=== PATIENT | female | born 2000 | race Two or more races ===

== ENCOUNTER → 2023-12-02 | Outpatient (CLI) | payer BC ==
[2023-12-02 10:30] LABS: Urine Bacteria None Seen /hpf (None Seen)
[2023-12-02 10:51] LABS: Urine Blood Negative /uL (Negative); Urine Clarity Clear (Clear); Urine Color Light-Yellow (Yellow); Urine Protein, UAD Negative (Negative); Urine Specific Gravity 1.018 (1.001-1.035); Urine Urobilinogen Normal (Negative); Urine WBC <1 /hpf (0 - 5); Urine pH 6.5 (5.0-9.0)
[2023-12-02 11:14] LABS: Basophils # (auto) 0.1 10 ^3/uL (0-0.2); Basophils % (auto) 1.1 % (0.0-2.0); Eosinophils # (auto) 0.2 10 ^3/uL (0-0.8); Eosinophils % (auto) 1.4 % (0.0-7.0); Hematocrit 39.2 % (36.0-46.0); Hemoglobin 13.4 g/dL (12.2-16.2); Lymphocytes # (auto) 2.4 10 ^3/uL (0.4-5.4); Lymphocytes % (auto) 22.4 % (10.0-50.0); Mean Corpuscular Hemoglobin 29.9 pg (28.0-32.0); Mean Corpuscular Hgb Conc. 34.2 g/dL (32.0-36.0); Mean Corpuscular Volume 87.6 fL (80.0-100.0); Monocytes # (auto) 0.6 10 ^3/uL (0-1.3); Monocytes % (auto) 5.6 % (0.0-12.0); Neutrophils # (auto) 7.3 10 ^3/uL (1.6-8.6); Neutrophils % (auto) 69.5 % (37.0-80.0); Platelet Count (auto) 343 10^3/uL (140-450); Red Blood Cells 4.48 10^6/uL (4.0-5.20); Red Cell Distribution Width 12.4 % (11.8-14.3); White Blood Cell 10.6 10^3/uL (4.4-10.8)
[2023-12-02 11:43] LABS: Alanine Aminotransferase 31 U/L (7-40); Albumin 4.9 g/dL (3.2-4.8); Alkaline Phosphatase 59 U/L (46-116); Anion Gap 7 (5-15); Aspartate Aminotransferase 24 U/L (13-40); Blood Urea Nitrogen 9 mg/dL (9-23); Calcium 10.1 mg/dL (8.7-10.4); Carbon Dioxide 26 mmol/L (20-30); Chloride 105 mmol/L (98-107); Cholesterol 167 mg/dL (< 200); Glucose 90 mg/dL (74-106); LDL Cholesterol 89 mg/dL (< 100); Potassium 4.6 mmol/L (3.5-5.1); Sodium 138 mmol/L (136-145); Triglycerides 109 mg/dL (< 150)
[2023-12-02 11:44] LABS: Bilirubin, Total 0.5 mg/dL (0.2-1.0); HDL Cholesterol 65 mg/dL (40-59); Total Protein 7.7 g/dL (5.7-8.2)
== END | disposition home or self-care (01) ==
LOC: LAB 10:17
PROVIDERS: ATTEND Student in an Organized Health Care Education/Training Program
DX: R73.9 Hyperglycemia, unspecified (principal); E55.9 Vitamin D deficiency, unspecified; R03.0 Elevated blood-pressure reading, without diagnosis of hypertension
CPT/HCPCS: 36415; 80053; 80061; 81001; 82306; 83036; 84443; 85025

== ENCOUNTER → 2024-04-08 | Outpatient (CLI) | payer BC ==
[2024-04-08 14:46] LABS: Basophils # (auto) 0.1 10 ^3/uL (0-0.2); Basophils % (auto) 0.7 % (0.0-2.0); Eosinophils # (auto) 0.2 10 ^3/uL (0-0.8); Eosinophils % (auto) 1.7 % (0.0-7.0); Hematocrit 40.5 % (36.0-46.0); Hemoglobin 13.4 g/dL (12.2-16.2); Lymphocytes # (auto) 2.8 10 ^3/uL (0.4-5.4); Lymphocytes % (auto) 30.3 % (10.0-50.0); Mean Corpuscular Hemoglobin 28.6 pg (28.0-32.0); Mean Corpuscular Volume 86.7 fL (80.0-100.0); Monocytes # (auto) 0.6 10 ^3/uL (0-1.3); Monocytes % (auto) 6.9 % (0.0-12.0); Neutrophils # (auto) 5.6 10 ^3/uL (1.6-8.6); Neutrophils % (auto) 60.4 % (37.0-80.0); Platelet Count (auto) 362 10^3/uL (140-450); Red Blood Cells 4.67 10^6/uL (4.0-5.20); Red Cell Distribution Width 13.4 % (11.8-14.3); White Blood Cell 9.2 10^3/uL (4.4-10.8)
[2024-04-08 15:06] LABS: Thyroid Stimulating Hormone 2.17 uIU/mL (0.55-4.78)
[2024-04-08 15:07] LABS: Follicle Stimulating Hormone 3.75 IU/L (SEE BELOW); Free T4 (Free Thyroxine) 1.18 ng/dL (0.89-1.76); Leuteinizing Hormone 6.7 IU/L; Prolactin 7.5 ng/mL (2.8-29.2)
[2024-04-08 15:18] LABS: Beta HCG, Quantitative < 0.0 mIU/mL (1.5-4.2)
== END | disposition home or self-care (01) ==
LOC: LAB 14:20
PROVIDERS: ATTEND Student in an Organized Health Care Education/Training Program
DX: N92.6 Irregular menstruation, unspecified (principal)
CPT/HCPCS: 36415; 82670; 83001; 83002; 84146; 84403; 84439; 84443; 84702; 85025

== ENCOUNTER 2024-10-05 10:00 | Observation (INO) | payer BC ==
--- NOTE | 2024-10-05 10:56 | DVH ---
BIOPHYSICAL PROFILE HISTORY: polyhydramnios TECHNIQUE: Multiple transabdominal real-time grayscale sonographic images through the gravid uterus of the fetus with duplex Doppler color flow and M-mode spectral analysis FINDINGS: BIOPHYSICAL PROFILE: breathing score: 2 movement score: 2 tone score: 2 Quantitative MOLLY score: 2 (MOLLY: 19 Cm.) Total score: 8 The cervix 3.37 heart rate 169.69 beats per minute. Grade II fundal placenta without previa or abruption IMPRESSION: Biophysical profile score: 8/8
--- NOTE | 2024-10-05 14:04 | DVHDS2 ---
Physician Discharge Progress N Final Diagnosis: polyhydramnai 28wks Operations or Procedures: Operations or Procedures nst reactive reviwed,sono Condition on Discharge: Good Disposition: Home Discharge Instructions: Diet: Regular, Consistent carbohydrate Activity: No Restrictions, As Tolerated Medications: na Follow Up Care: Specialist: 1w Discharge Statement: "Patient was advised to return to the ER or call 911 if any headaches, dizziness, shortness of breath, chest pain, abdominal pain, bleeding, fevers, or worsening of medical condition. Patient was counseled about treatment plan, medications, possible side effects, patientverbalized understanding. All questions were answered to the best of my ability. This discharge took greater then 30 minutes in planning, reviewing documentation, counseling the patient, and discussing with other team members." Visit Coding OBGYN Date of Service: Oct 05, 2024 Billing Provider: AGUSTÍN ARIZA DO HIGH SCHOOL PHYSICAL EDUCATION TEACHER Common Visit Codes: [id number] OBS CARE (HIGH) HIGH SCHOOL PHYSICAL EDUCATION TEACHER Procedure Codes: 97087-56- NON-STRESS TEST AGUSTÍN ARIZA DO Oct 05, 2024 14:04
== END 2024-10-05 11:23 | disposition home or self-care (01) ==
LOC: LDRP 10:00
PROVIDERS: ADMIT Obstetrics & Gynecology; ATTEND Obstetrics & Gynecology
DX: O40.3XX0 Polyhydramnios, third trimester, not applicable or unspecified (principal); O24.419 Gestational diabetes mellitus in pregnancy, unspecified control; Z3A.28 28 weeks gestation of pregnancy; Z79.899 Other long term (current) drug therapy
CPT/HCPCS: 76818; 81002; 94760; G0378; 59025; 76819

== ENCOUNTER 2024-10-12 10:00 | Observation (INO) | payer BC, OTHER ==
--- NOTE | 2024-10-12 11:03 | DVH ---
BIOPHYSICAL PROFILE HISTORY: Polyhydramnios Comparison Study: US BIOPHYSICAL PROFILE on DOS: 10/05/24 TECHNIQUE: Multiple real-time grayscale sonographic images through the gravid uterus of the fetus wi th duplex Doppler color flow and M-mode spectral analysis FINDINGS: BIOPHYSICAL PROFILE: breathing score: 2 movement score: 2 tone score: 2 Quantitative MOLLY score: 2 (MOLLY: 15.41 Cm.) Total score: 8 The cervix is not visualized Single live fetus in cephalic presentation. heart rate 149.19 beats per minute. Posterior placenta without previa or abruption IMPRESSION: Biophysical profile score: 8
[2024-10-12] MEDS ORDERED: PREN-96 PO (11:14)
== END 2024-10-12 11:51 | disposition home or self-care (01) ==
LOC: UNDOADMOB 10:00 → LDRP 10:00
PROVIDERS: ADMIT Obstetrics & Gynecology; ATTEND Obstetrics & Gynecology
DX: O40.3XX0 Polyhydramnios, third trimester, not applicable or unspecified (principal); Z3A.29 29 weeks gestation of pregnancy; Z79.899 Other long term (current) drug therapy
CPT/HCPCS: 76818; 81002; 94760; G0378; 59025; 76819

== ENCOUNTER 2024-11-06 00:54 | Observation (INO) | payer OTHER ==
[~2024-11-06 00:54] MED LIST: PREN-96 PO
[2024-11-06] MEDS ORDERED: ASPI-543 PO (02:03)
[2024-11-06 02:24] LABS: Urine Protein, UAD Negative (Negative)
--- NOTE | 2024-11-06 03:31 | DVH ---
INDICATION: R/SIDE BACK PAIN TECHNIQUE: Multiple real-time sonographic images of the kidneys and bladder were obtained. COMPARISON: None FINDINGS: RIGHT kidney measures 9.6 cm in length. Mild hydronephrosis. LEFT kidney measures 9.9 cm in length. No hydronephrosis. The bladder is moderately distended. Wall thickness measures 2 mm. No evidence of intraluminal fillin g defect. Postvoid imaging was not performed. IMPRESSION: 1. Mild right hydronephrosis, probably physiologic in the setting of 3rd term gestation.
--- NOTE | 2024-11-06 03:35 | DVHDS2 ---
Physician Discharge Progress N Final Diagnosis: Hydronephrosis affecting right kidney Problems List: (1) Nulligravida (2) Hydronephrosis (3) Flank pain in patient Commentary: Commentary Diagnosis- Right Flank pain/ Hydronephrosis SUBJECTIVE Patient is 24 y/o 33w1d SNLMP Triage for right flank pain/ Costal Vertebral Tenderness in the right side Renal ultrasound reported of hydronephrosis in the right kidney PNC: LMP: Patient receives care with Dr Escalona, History of polyhydramnios in that has since resolved. Next appointment with Dr Escalona 11/15 Review of Systems: Neuro: No complaints Heart: No complaints Lungs: No complaints GI: No complaints : Denies dysuria, abnormal vaginal discharge, itching, pain, or change in odor. States she had episodes of spotting as described above Skin: No complaints Extremities: No complaints OBJECTIVE VSS Laboratory Tests Test 11/06/24 01:29 Range/Units Urine Color Colorless Yellow Urine Clarity Clear Clear Urine pH 6.5 5.0-9.0 Urine Specific [place] 1.001 1.001-1.035 Urine Protein Negative Negative Urine Ketones Negative Negative Urine Blood Negative Negative /uL Urine Nitrite Negative Negative Urine Bilirubin Negative Negative Urine Urobilinogen Normal Negative mg/dL Urine Leukocyte Esterase Negative Negative /uL Urine RBC <1 0 - 4 /hpf Urine Microscopic WBC < 1 0-5 /HPF Urine Squamous Epithelial Cells Few <5 /hpf Urine Bacteria None seen None Seen /hpf Urine Glucose Normal Normal mg/dL FHR: Baseline: 130 Variability: Moderate Accelerations: Present Decelerations: Absent Uterine Contractions : Mild irritability and not felt by patient Uterine : Soft and non tender to palpation Category: 1 Neuro: A&O x4. No apparent distress. Affect appropriate Heart: Regular rate and rhythm Lungs: Clear bilaterally GI: Gravid. No tenderness : SSE discussed and performed with consent. Cervix closed. No bleeding noted in vagina or at os. Copious amounts of white, frothy discharge noted. Skin: Dry and intact. No rashes or lesions Extremities: Cap refill WNL. Mild edema bilat ankles. ASSESSMENT 24 yo with IUP 33w1d C/O R Flank pain Category 1 Tracing Dx Hydronephrosis Urine Negative for Bacteria PLAN -Provide regular diet and hydration -Rx Macrobid 100 mg BID X7 days , treat Empirically -Continue with appointments as scheduled with Dr Escalona Condition on Discharge: Stable Disposition: Home Discharge Instructions: Diet: Regular Activity: No Restrictions, As Tolerated Follow Up/Referral: Keep Scheduled appointment 11/15/2024 Medications: Macrobid 100 mg BID P.P X 7 days Follow Up Care: Specialist: Dr Escalona Visit Coding OBGYN Date of Service: Nov 06, 2024 Billing Provider: BEVERLEY JHA CNM FIREWORKS ASSEMBLY SUPERVISOR Common Visit Codes: [id number] OBS CARE (MOD) [facility] [place]
== END 2024-11-06 04:30 | disposition home or self-care (01) ==
LOC: LDRP 00:54
PROVIDERS: ADMIT Obstetrics & Gynecology; ATTEND Obstetrics & Gynecology
DX: O99.891 Other specified diseases and conditions complicating pregnancy (principal); N13.30 Unspecified hydronephrosis; Z3A.33 33 weeks gestation of pregnancy; Z98.890 Other specified postprocedural states; Z79.899 Other long term (current) drug therapy
CPT/HCPCS: 59025; 76775; 81001; 81002; 94760; G0378

== ENCOUNTER 2024-11-22 08:16 | Outpatient (CLI) | payer OTHER ==
[~2024-11-22 08:16] MED LIST changes: +ASPI-543 PO
[2024-11-22 08:56] LABS: Mean Corpuscular Volume 80.6 fL (80.0-100.0); Nucleated Red Blood Cells % 0.0 %
[2024-11-22 08:59] LABS: Hematocrit 34.3 % (36.0-46.0); Hemoglobin 11.4 g/dL (12.2-16.2); Mean Corpuscular Hemoglobin 26.8 pg (28.0-32.0)
[2024-11-24 02:07] LABS: Chlamydia Trachomatis, NAA Negative (Negative); Neisseria gonorrhoeae, NAA Negative (Negative)
== END 2024-11-22 17:00 | disposition home or self-care (01) ==
LOC: LAB 08:16
PROVIDERS: ATTEND Obstetrics & Gynecology
DX: Z34.80 Encounter for supervision of other normal pregnancy, unspecified trimester (principal); Z3A.00 Weeks of gestation of pregnancy not specified
CPT/HCPCS: 36415; 85025; 86780

== ENCOUNTER 2024-12-24 06:19 | Observation (INO) | payer OTHER ==
--- NOTE | 2024-12-24 15:13 | DVH ---
OB ULTRASOUND, LIMITED CLINICAL INDICATION: term TECHNIQUE: Multiple grayscale ultrasound and M-mode images were obtained of the pelvis for evaluation of intrauterine . COMPARISON: US BIOPHYSICAL PROFILE on DOS: 10/12/24, US BIOPHYSICAL PROFILE on DOS: 10/05/24 FINDINGS: A single living fetus is seen in cephalic presentation. Biophysical: 10/21 breathin movements: 2 tone: 2 Amniotic fluid volume: 2 Placenta: Fundal/posterior. Amniotic fluid: Visibly normal. MOLLY 7.7 cm heart rate: 144 beats/min. A complete anatomic survey was not performed on this exam. Possible nuchal cord IMPRESSION: 1. Biophysical profile: 10/21 2. Possible nuchal cord
--- NOTE | 2024-12-24 15:58 | DVHDS2 ---
Physician Discharge Progress N Final Diagnosis: Term IUP 40+ wk Secondary Diagnosis: Encounter for surveillance Operations or Procedures: Operations or Procedures NST/BPP/ MOLLY reviewed, WNL PATIENT: HUNTER MEJIACT: [id number] UNIT: [id number] : 2000 [facility] BED: TRIAGE3 / A AGE / SEX: 24 / F ADM STATUS: ADM IN SERVICE 1405 ORDERING PHYSICIAN: JAYLON COBB DO PROCEDURE(s): BPP - BIOPHYSICAL PROFILE REASON: term ORDER NUMBER(s): [id number], ACCESSION NUMBER(s): [id number] OB ULTRASOUND, LIMITED CLINICAL INDICATION: term TECHNIQUE: Multiple grayscale ultrasound and M-mode images were obtained of the pelvis for evaluation of intrauterine . COMPARISON: US BIOPHYSICAL PROFILE on DOS: 10/12/24, US BIOPHYSICAL PROFILE on DOS: 10/05/24 FINDINGS: A single living fetus is seen in cephalic presentation. Biophysical: 10/21 breathin movements: 2 tone: 2 Amniotic fluid volume: 2 Placenta: Fundal/posterior. Amniotic fluid: Visibly normal. MOLLY 7.7 cm heart rate: 144 beats/min. A complete anatomic survey was not performed on this exam. Possible nuchal cord IMPRESSION: 1. Biophysical profile: 88 Condition on Discharge: Stable Disposition: Home Discharge Instructions: Diet: Regular Activity: No Restrictions, As Tolerated Follow Up/Referral: As sched Medications: NA Follow Up Care: Discharge Statement: "Patient was advised to return to the ER or call 911 if any headaches, dizziness, shortness of breath, chest pain, abdominal pain, bleeding, fevers, or worsening of medical condition. Patient was counseled about treatment plan, medications, possible side effects, patientverbalized understanding. All questions were answered to the best of my ability. This discharge took greater then 30 minutes in planning, reviewing documentation, counseling the patient, and discussing with other team members." Visit Coding OBGYN Date of Service: Dec 24, 2024 Billing Provider: JAYLON COBB DO GRAPHIC ARTS TECHNICIAN Common Visit Codes: [id number]-ZKZ/OBS SAME DATE (HIGH) GRAPHIC ARTS TECHNICIAN Procedure Codes: 65232-30- NON-STRESS TEST JAYLON COBB DO Dec 24, 2024 15:58
== END 2024-12-24 15:40 | disposition home or self-care (01) ==
LOC: LDRP 13:56
PROVIDERS: ADMIT Obstetrics & Gynecology; ATTEND Obstetrics & Gynecology
DX: O48.0 Post-term pregnancy (principal); Z3A.40 40 weeks gestation of pregnancy; Z98.890 Other specified postprocedural states
CPT/HCPCS: 76818; 81002; 94760; G0378; 59025; 76819

== ENCOUNTER 2024-12-26 08:16 | Observation (INO) | payer OTHER ==
--- NOTE | 2024-12-26 10:09 | DVH ---
BIOPHYSICAL PROFILE HISTORY: term TECHNIQUE: Multiple transabdominal real-time grayscale sonographic images through the gravid uterus o f the fetus with duplex doppler color flow and M-mode spectral analysis FINDINGS: BIOPHYSICAL PROFILE: breathing score: 2 movement score: 2 tone score: 2 Quantitative MOLLY score: 2 (MOLLY: 139 cm.) Total score: 8/8 Single live fetus in cephalic presentation. heart rate 139 beats per minute. Fundal placenta without previa or abruption Biophysical profile score 8/8 corresponding to an COLETTE of 12/24/24 IMPRESSION: Biophysical profile score: 8/8
--- NOTE | 2024-12-26 14:28 | DVHDS2 ---
Physician Discharge Progress N Final Diagnosis: term preg 40 wks Operations or Procedures: Operations or Procedures nst reactive reviwed,sono Condition on Discharge: Good Disposition: Home Discharge Instructions: Diet: Regular Activity: No Restrictions, As Tolerated Medications: na Follow Up Care: Specialist: 1d for induction Discharge Statement: "Patient was advised to return to the ER or call 911 if any headaches, dizziness, shortness of breath, chest pain, abdominal pain, bleeding, fevers, or worsening of medical condition. Patient was counseled about treatment plan, medications, possible side effects, patientverbalized understanding. All questions were answered to the best of my ability. This discharge took greater then 30 minutes in planning, reviewing documentation, counseling the patient, and discussing with other team members." Visit Coding OBGYN Date of Service: Dec 26, 2024 Billing Provider: AGUSTÍN ARIZA DO DIE CLEANER Common Visit Codes: [id number] OBS CARE (HIGH) DIE CLEANER Procedure Codes: 58691-74- NON-STRESS TEST AGUSTÍN ARIZA DO Dec 26, 2024 14:28
== END 2024-12-26 11:09 | disposition home or self-care (01) ==
LOC: LDRP 08:16 → UNDOADMOB 08:16 → LDRP 09:18
PROVIDERS: ADMIT Obstetrics & Gynecology; ATTEND Obstetrics & Gynecology
DX: O48.0 Post-term pregnancy (principal); Z3A.40 40 weeks gestation of pregnancy; Z98.890 Other specified postprocedural states
CPT/HCPCS: 59025; 76819; 81002; 94760; G0378; 76818

== ENCOUNTER 2024-12-27 10:00 | Inpatient (IN) | payer OTHER ==
[~2024-12-27] VITALS: Ht 160 cm; Wt 78.0 kg
[~2024-12-27 10:00] MED LIST changes: -ASPI-543 PO
[2024-12-27] MEDS ORDERED: LIDOCAINE 2%HCL (LOCAL ANESTH.) INJ 20ML MDV IJ PRN (10:45)
[2024-12-27] MEDS ORDERED: BUTORPHANOL TARTRATE 2 MG/1 ML VIAL IV PRN ×2 (10:45)
[2024-12-27 11:37] LABS: Hematocrit 36.3 % (36.0-46.0); Hemoglobin 11.6 g/dL (12.2-16.2); Mean Corpuscular Hemoglobin 25.3 pg (28.0-32.0); Mean Corpuscular Volume 79.4 fL (80.0-100.0); Nucleated Red Blood Cells % 0.1 %
[2024-12-27 11:49] LABS: INR 0.91 (0.9-1.15); Partial Thromboplastin Time 27.0 SEC (24.5-34.5); Prothrombin Time 9.7 sec (9.3-11.8)
[2024-12-27 11:57] LABS: Alanine Aminotransferase 10 U/L (7-40); Albumin 3.8 g/dL (3.2-4.8); Anion Gap 11 (5-15); BUN/Creatinine Ratio 9.4 (10.0-20.0); Bilirubin, Total 0.4 mg/dL (0.2-1.0); Calcium 8.8 mg/dL (8.7-10.4); Carbon Dioxide 23 mmol/L (20-31); Chloride 106 mmol/L (98-107); Glucose 91 mg/dL (74-106); Potassium 3.9 mmol/L (3.5-5.1); Sodium 140 mmol/L (136-145); Total Protein 6.4 g/dL (5.7-8.2)
[2024-12-27 11:59] LABS: Alkaline Phosphatase 202 U/L (46-116); Blood Urea Nitrogen 6 mg/dL (9-23)
[2024-12-27] MEDS: DERMOPLAST 60ML BOTTLE TOP PRN (12:10)
[2024-12-27] MEDS: PHISODERM TOP SOLN 240ML BTL TOP PRN (12:10)
[2024-12-27] MEDS: WITCH HAZEL-GLYCERIN PAD TOP PRN (12:10)
[2024-12-27 12:14] LABS: Urine Protein, UAD Negative (Negative)
[2024-12-27 12:37] LABS: Amphetamine Screen, Urine Neg (NEGATIVE); Barbiturate Scree,Urine Neg (NEGATIVE); Benzodiazephine Screen, Urine Neg (NEGATIVE); Cannabinoid Screen, Urine Neg (NEGATIVE); Cocaine Screen, Urine Neg (NEGATIVE); Opiate Scree,Urine Neg (NEGATIVE); Phencyclidine Screen, Urine Neg (NEGATIVE)
--- NOTE | 2024-12-27 13:07 | DVHHP2 ---
OB CC & HPI Date Date of Admission: Dec 27, 2024 Patient Identification: : 1 Para: 0 EDC: Dec 24, 2024 EGA: 40.3 Chief Complaints: Reason for admission: induction of labor Indication for induction: post dates History of Present Complaints HPI: 24yo IUP@40.3wks presents for IOL for post dates Denies LOF/VB/ROSE/vision changes/RUQ pain/UCs. Endorses +FM. PNC: Routine PNC at [facility] OB, adequate visits, PNC, uncomplicated GTT wnl, dating based on 10 w sono, GBS negative. OB hx: +Chlamydia in , patient and partner treated. ANDREW negative Past Medical History Cardiac: No pertinent Hx Pulmonary: No pertinent Hx Central Nervous System: No pertinent Hx GI: No pertinent Hx Hemotology/Oncology: No pertinent Hx Hepatobiliary: No pertinent Hx Psychiatric: No pertinent Hx Musculoskeletal: No pertinent Hx Rheumotologic: No pertinent Hx Infectious Disease: No peritnent Hx ENT: No pertinent Hx Renal/: No pertinent Hx Endocrine: No pertinent Hx Dermatology: No pertinent Hx Past Surgical History: Other (Reports eye surgery 2018) OB History OB History Care: Good Care Ultrasounds: Normal mid trimester US Obstetrical Complications: None Medical Complications: None Allergies: Coded Allergies: NO KNOWN ALLERGIES (Unverified , 11/06/24) Home Meds Reported Medications Vit W/ Ferrous Fumara ( One Daily) Daily Tab, 1 TAB PO DAILY, #90 TAB 3 Refills 10/12/24 Discontinued Reported Medications Aspirin (Aspir-Low) 81 Mg Tab, 81 MG PO DAILY for 30 Days, MG 11/06/24 Current Medications Current Medications Medications (Trade) Dose Ordered Sig/Marley Route PRN Reason Start Time Stop Time Status Last Admin Lactated Ringer's 1,000 ml @ 125 mls/hr Q8H IV 12/27/24 10:45 Witch Kalina (Tucks) 1 pad PRN PRN TOP PERINEAL AREA DISCOMFORT 12/27/24 10:45 12/27/24 12:10 Sodium Lauryl Sulfate (Phisoderm) 240 ml PRN PRN TOP PERINEAL AREA DISCOMFORT 12/27/24 10:45 12/27/24 12:10 Benzocaine (Dermoplast) 1 applic PRN PRN TOP PERINEAL AREA DISCOMFORT 12/27/24 10:45 12/27/24 12:10 Butorphanol Tartrate (Stadol Injection) 1 mg Q4HPRN PRN IV MODERATE PAIN (4-6 PAIN SCALE) 12/27/24 10:45 Butorphanol Tartrate (Stadol Injection) 2 mg Q4HPRN PRN IV SEVERE PAIN (7-10 PAIN SCALE) 12/27/24 10:45 Misoprostol (Cytotec) 50 mcg Q4HPRN PRN PO CERVICAL RIPENING 12/27/24 10:45 12/27/24 12:10 Lidocaine HCl (Xylocaine) 20 ml ONCE PRN IJ PERINEAL AREA DISCOMFORT 12/27/24 10:45 Family & Social History Family/Social History Past Family/Social History: Denies Blood Type: AB+ Rubella: immune RPR/VDRL: Negative GBS Status: Negative HBsAG: Negative Review of Systems Constitutional: No symptom reported Ears, Nose, & Throat: No symptom reported Eyes: No symptom reported Pulmonary/Respiratory: No symptom reported Cardiovascular: No symptom reported Gastrointestinal: No symptom reported Genitourinary: No symptom reported Musculoskeletal: No symptom reported Skin: No symptom reported Psychiatric: No symptom reported Endocrine: No symptom reported Hemotologic/Lymphatic: No symptom reported OB Admission Exam Physical Exam Vitals: O: VSS EFW - 7lbs 4oz one week ago in clinic SVE - , vtx Cytotec x1 given After discussion, patient desires corona cervical ripening balloon. HEENT: TMs Normal, Fontanelles Normal, Nasal Mucosa Normal, Eyes non-injected, Oropharynx Normal, PERRLA, Moist Membranes, EOMI Heart: Rhythm Normal Lungs: Clear Abdomen: Gravid Extremities: Normal Reflexes: Normal Pelvic Exam: - Corona cervical ripening balloon placed, 60cc sterile water Membranes: Intact Heart Rate: 150's Accelerations: Accelerations Present Decelerations: No Decelerations Detention Variability: Average (6-25) Contractions on Admission: None OB Plan Plan Admitting Diagnosis: induction of labor for post term Plan: Induction Induction Methd: Misoprostol protocol Other Plan: A: 24yo IUP@40.3wks Induction of Labor for Post Dates History +Chlamydia, treated Category I EFM Intact Membranes GBS negative P: Admit to L&D Informed consent obtained Discussed risks, benefits, alternatives of IOL for postdates with pt. Pt consents to IOL with cytotec and corona CRB. Discussed potential of starting pitocin later with pt. Pt agrees with POC. monitoring per order Routine labs ordered Pain mgmt PRN Frequent position changes in and out of bed encouraged Limit SVE unless necessary Intrauterine resuscitation PRN Anticipate CNM will consult with Dr. Escalona PRN Visit Coding OBGYN Date of Service: Dec 27, 2024 Billing Provider: ALYSIA ADAMS CNM BILINGUAL SALES REPRESENTATIVE Common Visit Codes: [id number] INP/OBS CARE (MOD) BILINGUAL SALES REPRESENTATIVE Procedure Codes: 28475-42- NON-STRESS TEST RADHA WEST STUDENTMDW Dec 27, 2024 13:07
--- NOTE | 2024-12-27 16:12 | DVHPN2 ---
CNM Labor Progress Note Date and Time Seen Date Seen: Dec 27, 2024 Time Seen: 16:00 Subjective Patient reports: No new complaints Objective Vital Signs VSS- See CPN Monitoring Method Monitoring Method: External Heart Rate Heart Rate Baseline: 140 Heart Rate Variability: Moderate Presence of FHR Accelerations: Yes Presence of FHR Decelerations: No Changes in Trends of Patterns: No Are all 5 Components of the FH: Yes Contractions Contractions Frequency: Other (Q2-4min) Duration of Contraction: 60 Contractions Intensity: Moderate Contractions Resting Tone: Relaxed Membranes Membranes: Intact Vaginal Exam Vag Exam Deferred: No (/-2, Balloon fell out at 1435) Vaginal Exam Presentation: VTX Vaginal Exam Show: Small Medications Medications - Pitocin: No Medications - Pain Medications: PRN Medication - Epidural: No Medication - Other S/P cytotec x1 Lab Results Lab Results Current Medications Medications (Trade) Dose Ordered Sig/Marley Start Time Stop Time Status Last Admin Dose Admin Lactated Ringer's 1,000 ml @ 125 mls/hr Q8H 12/27/24 10:45 [place] Kalina (Tucks) 1 pad PRN PRN 12/27/24 10:45 12/27/24 12:10 1 PAD Sodium Lauryl Sulfate (Phisoderm) 240 ml PRN PRN 12/27/24 10:45 12/27/24 12:10 240 ML Benzocaine (Dermoplast) 1 applic PRN PRN 12/27/24 10:45 12/27/24 12:10 1 APPLIC Butorphanol Tartrate (Stadol Injection) 1 mg Q4HPRN PRN 12/27/24 10:45 Butorphanol Tartrate (Stadol Injection) 2 mg Q4HPRN PRN 12/27/24 10:45 Misoprostol (Cytotec) 50 mcg Q4HPRN PRN 12/27/24 10:45 12/27/24 12:10 50 MCG Lidocaine HCl (Xylocaine) 20 ml ONCE PRN 12/27/24 10:45 Oxytocin 500 ml @ 999 mls/hr Q31M ONCE 12/27/24 19:15 12/27/24 19:45 Oxytocin 500 ml @ 125 mls/hr Q4H ONCE 12/27/24 19:45 12/27/24 23:44 Laboratory Tests Test 12/27/24 10:50 12/27/24 10:00 Range/Units White Blood Count 12.2 H 4.4-10.8 10^3/uL Red Blood Count 4.57 4.0-5.20 10^6/uL Hemoglobin 11.6 L 12.2-16.2 g/dL Hematocrit 36.3 36.0-46.0 % Mean Corpuscular Volume 79.4 L 80.0-100.0 fL Mean Corpuscular Hemoglobin 25.3 L 28.0-32.0 pg Mean Corpuscular Hemoglobin Concent 31.9 L 32.0-36.0 g/dL Red Cell Distribution Width 14.8 H 11.8-14.3 % Platelet Count 272 140-450 10^3/uL Mean Platelet Volume 10.2 6.9-10.8 fL Neutrophils (%) (Auto) 77.4 37.0-80.0 % Lymphocytes (%) (Auto) 17.3 10.0-50.0 % Monocytes (%) (Auto) 4.4 0.0-12.0 % Eosinophils (%) (Auto) 0.4 0.0-7.0 % Basophils (%) (Auto) 0.5 0.0-2.0 % Neutrophils # (Auto) 9.5 H 1.6-8.6 10 ^3/uL Lymphocytes # (Auto) 2.1 0.4-5.4 10 ^3/uL Monocytes # (Auto) 0.5 0-1.3 10 ^3/uL Eosinophils # (Auto) 0 0-0.8 10 ^3/uL Basophils # (Auto) 0.1 0-0.2 10 ^3/uL Nucleated Red Blood Cells 0.1 % Prothrombin Time 9.7 9.3-11.8 sec Prothrombin Time INR 0.91 0.9-1.15 Activated Partial Thromboplast Time 27.0 24.5-34.5 SEC Sodium Level 140 136-145 mmol/L Potassium Level 3.9 3.5-5.1 mmol/L Chloride Level 106 98-107 mmol/L Carbon Dioxide Level 23 20-31 mmol/L Anion Gap 11 5-15 Blood Urea Nitrogen 6 L 9-23 mg/dL Creatinine 0.64 0.550-1.02 mg/dL Glomerular Filtration Rate Calc 126 >90 mL/min BUN/Creatinine Ratio 9.4 L 10.0-20.0 Serum Glucose 91 74-106 mg/dL Calcium Level 8.8 8.7-10.4 mg/dL Total Bilirubin 0.4 0.2-1.0 mg/dL Aspartate Amino Transferase (AST) 20 13-40 U/L Alanine Aminotransferase (ALT) 10 7-40 U/L Alkaline Phosphatase 202 H 46-116 U/L Total Protein 6.4 5.7-8.2 g/dL Albumin 3.8 3.2-4.8 g/dL Treponema pallidum Antibody Non-reactive Negative Hepatitis B Surface Antigen Negative Negative Hepatitis C Antibody Negative Negative Rubella Antibody Positive Urine Color Light-yellow Yellow Urine Clarity Turbid H Clear Urine pH 6.5 5.0-9.0 Urine Specific [place] 1.019 1.001-1.035 Urine Protein Negative Negative Urine Ketones Negative Negative Urine Blood 3+ H Negative /uL Urine Nitrite Negative Negative Urine Bilirubin Negative Negative Urine Urobilinogen Normal Negative mg/dL Urine Leukocyte Esterase 2+ Negative /uL Urine RBC 1 0 - 4 /hpf Urine Microscopic WBC 14 H 0-5 /HPF Urine Squamous Epithelial Cells Mod <5 /hpf Urine Bacteria None seen None Seen /hpf Urine Glucose Normal Normal mg/dL Urine Opiates Screen Neg NEGATIVE Urine Fentanyl Screen Neg NEGATIVE Urine Barbiturates Screen Neg NEGATIVE Urine Phencyclidine Screen Neg NEGATIVE Urine Amphetamines Screen Neg NEGATIVE Urine Benzodiazepines Screen Neg NEGATIVE Urine Cocaine Screen Neg NEGATIVE Urine Cannabinoids Screen Neg NEGATIVE Assessment Assessment A: 24yo IUP@40.3wks Induction of labor for Post Dates Category I EFM Intact Membranes GBS negative Plan Plan P: Start pitocin if UCs space out Pain mgmt PRN monitoring per order Frequent position changes in and out of bed encouraged Limit SVE unless necessary Intrauterine resuscitation PRN Anticipate CNM will consult with Dr. Escalona PRN Plan discussed with: Patient Visit Coding OBGYN Date of Service: Dec 27, 2024 Billing Provider: ALYSIA ADAMS CNM COPYING MACHINE MECHANIC Common Visit Codes: [id number] INP/OBS CARE(MOD) RADHA WESTMDW Dec 27, 2024 16:12
[2024-12-27] MEDS: LACTATED RINGER'S 1,000 ML IV SCH (18:45)
[2024-12-27] MEDS ORDERED: TERBUTALINE SULFATE 1 MG/ML 1ML VIAL SC PRN (20:15)
--- NOTE | 2024-12-27 20:19 | DVHPN2 ---
CNM Labor Progress Note Date and Time Seen Date Seen: Dec 27, 2024 Time Seen: 20:05 Subjective Subjective Comment Patient reports UCs increasing in intensity, declines pain medication. Objective Vital Signs VSS- See CPN Monitoring Method Monitoring Method: External Heart Rate Heart Rate Baseline: 135 Heart Rate Variability: Moderate Presence of FHR Accelerations: Yes Presence of FHR Decelerations: No Are all 5 Components of the FH: Yes Contractions Contractions Frequency: Other (Q2-4min) Duration of Contraction: 60 Contractions Intensity: Moderate Contractions Resting Tone: Relaxed Membranes Membranes: Intact Vaginal Exam Vag Exam Deferred: No (5.5/80/-2) Vaginal Exam Presentation: VTX Vaginal Exam Show: Small Medications Medications - Pitocin: No Medications - Pain Medications: PRN Medication - Epidural: No Lab Results Lab Results Current Medications Medications (Trade) Dose Ordered Sig/Marley Start Time Stop Time Status Last Admin Dose Admin Lactated Ringer's 1,000 ml @ 125 mls/hr Q8H 12/27/24 10:45 Witch Kalina (Tucks) 1 pad PRN PRN 12/27/24 10:45 12/27/24 12:10 1 PAD Sodium Lauryl Sulfate (Phisoderm) 240 ml PRN PRN 12/27/24 10:45 12/27/24 12:10 240 ML Benzocaine (Dermoplast) 1 applic PRN PRN 12/27/24 10:45 12/27/24 12:10 1 APPLIC Butorphanol Tartrate (Stadol Injection) 1 mg Q4HPRN PRN 12/27/24 10:45 Butorphanol Tartrate (Stadol Injection) 2 mg Q4HPRN PRN 12/27/24 10:45 Misoprostol (Cytotec) 50 mcg Q4HPRN PRN 12/27/24 10:45 12/27/24 12:10 50 MCG Lidocaine HCl (Xylocaine) 20 ml ONCE PRN 12/27/24 10:45 Oxytocin 500 ml @ 999 mls/hr Q31M ONCE 12/27/24 19:15 12/27/24 19:45 DC Oxytocin 500 ml @ 125 mls/hr Q4H ONCE 12/27/24 19:45 12/27/24 23:44 Oxytocin 1,000 ml @ 6 ml/hr Q24H 12/27/24 20:15 UNV Terbutaline Sulfate (Brethine Inj) 0.25 mg ONCE PRN 12/27/24 20:15 UNV Ondansetron HCl (Zofran) 4 mg Q4HPRN PRN 12/27/24 20:15 UNV Laboratory Tests Test 12/27/24 10:50 12/27/24 10:00 Range/Units White Blood Count 12.2 H 4.4-10.8 10^3/uL Red Blood Count 4.57 4.0-5.20 10^6/uL Hemoglobin 11.6 L 12.2-16.2 g/dL Hematocrit 36.3 36.0-46.0 % Mean Corpuscular Volume 79.4 L 80.0-100.0 fL Mean Corpuscular Hemoglobin 25.3 L 28.0-32.0 pg Mean Corpuscular Hemoglobin Concent 31.9 L 32.0-36.0 g/dL Red Cell Distribution Width 14.8 H 11.8-14.3 % Platelet Count 272 140-450 10^3/uL Mean Platelet Volume 10.2 6.9-10.8 fL Neutrophils (%) (Auto) 77.4 37.0-80.0 % Lymphocytes (%) (Auto) 17.3 10.0-50.0 % Monocytes (%) (Auto) 4.4 0.0-12.0 % Eosinophils (%) (Auto) 0.4 0.0-7.0 % Basophils (%) (Auto) 0.5 0.0-2.0 % Neutrophils # (Auto) 9.5 H 1.6-8.6 10 ^3/uL Lymphocytes # (Auto) 2.1 0.4-5.4 10 ^3/uL Monocytes # (Auto) 0.5 0-1.3 10 ^3/uL Eosinophils # (Auto) 0 0-0.8 10 ^3/uL Basophils # (Auto) 0.1 0-0.2 10 ^3/uL Nucleated Red Blood Cells 0.1 % Prothrombin Time 9.7 9.3-11.8 sec Prothrombin Time INR 0.91 0.9-1.15 Activated Partial Thromboplast Time 27.0 24.5-34.5 SEC Sodium Level 140 136-145 mmol/L Potassium Level 3.9 3.5-5.1 mmol/L Chloride Level 106 98-107 mmol/L Carbon Dioxide Level 23 20-31 mmol/L Anion Gap 11 5-15 Blood Urea Nitrogen 6 L 9-23 mg/dL Creatinine 0.64 0.550-1.02 mg/dL Glomerular Filtration Rate Calc 126 >90 mL/min BUN/Creatinine Ratio 9.4 L 10.0-20.0 Serum Glucose 91 74-106 mg/dL Calcium Level 8.8 8.7-10.4 mg/dL Total Bilirubin 0.4 0.2-1.0 mg/dL Aspartate Amino Transferase (AST) 20 13-40 U/L Alanine Aminotransferase (ALT) 10 7-40 U/L Alkaline Phosphatase 202 H 46-116 U/L Total Protein 6.4 5.7-8.2 g/dL Albumin 3.8 3.2-4.8 g/dL Treponema pallidum Antibody Non-reactive Negative Hepatitis B Surface Antigen Negative Negative Hepatitis C Antibody Negative Negative Rubella Antibody Positive Urine Color Light-yellow Yellow Urine Clarity Turbid H Clear Urine pH 6.5 5.0-9.0 Urine Specific [place] 1.019 1.001-1.035 Urine Protein Negative Negative Urine Ketones Negative Negative Urine Blood 3+ H Negative /uL Urine Nitrite Negative Negative Urine Bilirubin Negative Negative Urine Urobilinogen Normal Negative mg/dL Urine Leukocyte Esterase 2+ Negative /uL Urine RBC 1 0 - 4 /hpf Urine Microscopic WBC 14 H 0-5 /HPF Urine Squamous Epithelial Cells Mod <5 /hpf Urine Bacteria None seen None Seen /hpf Urine Glucose Normal Normal mg/dL Urine Opiates Screen Neg NEGATIVE Urine Fentanyl Screen Neg NEGATIVE Urine Barbiturates Screen Neg NEGATIVE Urine Phencyclidine Screen Neg NEGATIVE Urine Amphetamines Screen Neg NEGATIVE Urine Benzodiazepines Screen Neg NEGATIVE Urine Cocaine Screen Neg NEGATIVE Urine Cannabinoids Screen Neg NEGATIVE Assessment Assessment A: 24yo IUP@40.3wks Induction of labor for Post Dates Category I EFM Intact Membranes GBS negative Plan Plan P: Start pitocin per order Pain mgmt PRN monitoring per order Frequent position changes in and out of bed encouraged Limit SVE unless necessary Intrauterine resuscitation PRN Anticipate CNM will consult with Dr. Escalona PRN Plan discussed with: Patient Visit Coding OBGYN Date of Service: Dec 27, 2024 Billing Provider: ALYSIA ADAMS CNM VOIP ENGINEER Common Visit Codes: [id number] INP/OBS CARE(MOD) RADHA WESTWIRene Dec 27, 2024 20:19
[2024-12-27] MEDS: ONDANSETRON HCL 4 MG/2 ML VIAL IV PRN (20:21)
[2024-12-27] MEDS: LACT. RINGERS/OXYTOCIN 20UNITS 1,000 ML IV SCH (22:33)
[2024-12-27] MEDS: ROPIVACAINE HCL 100 ML ONE (22:34)
--- NOTE | 2024-12-28 01:08 | DVHPN2 ---
CNM Labor Progress Note Date and Time Seen Date Seen: Dec 28, 2024 Time Seen: 00:50 Subjective Subjective Comment Patient comfortable after epidural placement. Reports it is working well. Objective Vital Signs VSS- See CPN Monitoring Method Monitoring Method: External Heart Rate Heart Rate Baseline: 150 Heart Rate Variability: Moderate Presence of FHR Accelerations: Yes Presence of FHR Decelerations: Yes Heart Rate Type of Decel: Late Decelerations Are all 5 Components of the FH: Yes Contractions Contractions Frequency: Other (Q2-4min) Duration of Contraction: 100 Contractions Intensity: Moderate Contractions Resting Tone: Relaxed Membranes Membranes: Ruptured (SROM, Nitrizine positive. 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 Meconium (Thick) Vaginal Exam Vag Exam Deferred: No () Vaginal Exam Presentation: VTX Vaginal Exam Show: Small Medications Medications - Pitocin: Yes (7mu/min) Medication - Epidural: Yes Lab Results Lab Results Current Medications Medications (Trade) Dose Ordered Sig/Marley Start Time Stop Time Status Last Admin Dose Admin Lactated Ringer's 1,000 ml @ 125 mls/hr Q8H 12/27/24 10:45 12/28/24 08:11 DC 12/28/24 02:45 125 MLS/HR Witch Kalina (Tucks) 1 pad PRN PRN 12/27/24 10:45 12/27/24 12:10 1 PAD Sodium Lauryl Sulfate (Phisoderm) 240 ml PRN PRN 12/27/24 10:45 12/27/24 12:10 240 ML Benzocaine (Dermoplast) 1 applic PRN PRN 12/27/24 10:45 12/28/24 04:35 1 APPLIC Butorphanol Tartrate (Stadol Injection) 1 mg Q4HPRN PRN 12/27/24 10:45 12/28/24 08:11 DC Butorphanol Tartrate (Stadol Injection) 2 mg Q4HPRN PRN 12/27/24 10:45 12/28/24 08:11 DC Misoprostol (Cytotec) 50 mcg Q4HPRN PRN 12/27/24 10:45 12/28/24 08:11 DC 12/27/24 12:10 50 MCG Lidocaine HCl (Xylocaine) 20 ml ONCE PRN 12/27/24 10:45 12/28/24 08:11 DC Oxytocin 500 ml @ 999 mls/hr Q31M ONCE 12/27/24 19:15 12/27/24 19:45 DC Oxytocin 500 ml @ 125 mls/hr Q4H ONCE 12/27/24 19:45 12/27/24 23:44 DC Oxytocin 1,000 ml @ 6 ml/hr Q24H 12/27/24 20:15 12/28/24 08:11 DC 12/27/24 22:33 3 ML/HR Terbutaline Sulfate (Brethine Inj) 0.25 mg ONCE PRN 12/27/24 20:15 12/28/24 08:11 DC Ondansetron HCl (Zofran) 4 mg Q4HPRN PRN 12/27/24 20:15 12/28/24 03:03 4 MG Ephedrine Sulfate (ePHEDrine SULFATE) 10 mg PRN ONCE 12/27/24 20:45 12/27/24 20:46 DC Cefazolin Sodium/ Dextrose 50 ml @ 50 mls/hr ONCE ONCE 12/28/24 07:30 12/28/24 08:29 12/28/24 08:09 50 MLS/HR Ibuprofen (Motrin Tablet) 600 mg Q6HP PRN 12/28/24 08:15 Acetaminophen (Tylenol Tablet) 650 mg Q6HPRN PRN 12/28/24 08:15 Prenat Multivit/ [place]/Iron/Folic Ac (Prenavite Tablet) 1 DAILY 12/28/24 10:00 Docusate Sodium (Colace Capsule) 200 mg DAILY 12/28/24 10:00 Laboratory Tests Test 12/27/24 10:50 12/27/24 10:00 Range/Units White Blood Count 12.2 H 4.4-10.8 10^3/uL Red Blood Count 4.57 4.0-5.20 10^6/uL Hemoglobin 11.6 L 12.2-16.2 g/dL Hematocrit 36.3 36.0-46.0 % Mean Corpuscular Volume 79.4 L 80.0-100.0 fL Mean Corpuscular Hemoglobin 25.3 L 28.0-32.0 pg Mean Corpuscular Hemoglobin Concent 31.9 L 32.0-36.0 g/dL Red Cell Distribution Width 14.8 H 11.8-14.3 % Platelet Count 272 140-450 10^3/uL Mean Platelet Volume 10.2 6.9-10.8 fL Neutrophils (%) (Auto) 77.4 37.0-80.0 % Lymphocytes (%) (Auto) 17.3 10.0-50.0 % Monocytes (%) (Auto) 4.4 0.0-12.0 % Eosinophils (%) (Auto) 0.4 0.0-7.0 % Basophils (%) (Auto) 0.5 0.0-2.0 % Neutrophils # (Auto) 9.5 H 1.6-8.6 10 ^3/uL Lymphocytes # (Auto) 2.1 0.4-5.4 10 ^3/uL Monocytes # (Auto) 0.5 0-1.3 10 ^3/uL Eosinophils # (Auto) 0 0-0.8 10 ^3/uL Basophils # (Auto) 0.1 0-0.2 10 ^3/uL Nucleated Red Blood Cells 0.1 % Prothrombin Time 9.7 9.3-11.8 sec Prothrombin Time INR 0.91 0.9-1.15 Activated Partial Thromboplast Time 27.0 24.5-34.5 SEC Sodium Level 140 136-145 mmol/L Potassium Level 3.9 3.5-5.1 mmol/L Chloride Level 106 98-107 mmol/L Carbon Dioxide Level 23 20-31 mmol/L Anion Gap 11 5-15 Blood Urea Nitrogen 6 L 9-23 mg/dL Creatinine 0.64 0.550-1.02 mg/dL Glomerular Filtration Rate Calc 126 >90 mL/min BUN/Creatinine Ratio 9.4 L 10.0-20.0 Serum Glucose 91 74-106 mg/dL Calcium Level 8.8 8.7-10.4 mg/dL Total Bilirubin 0.4 0.2-1.0 mg/dL Aspartate Amino Transferase (AST) 20 13-40 U/L Alanine Aminotransferase (ALT) 10 7-40 U/L Alkaline Phosphatase 202 H 46-116 U/L Total Protein 6.4 5.7-8.2 g/dL Albumin 3.8 3.2-4.8 g/dL Treponema pallidum Antibody Non-reactive Negative Hepatitis B Surface Antigen Negative Negative Hepatitis C Antibody Negative Negative Rubella Antibody Positive Urine Color Light-yellow Yellow Urine Clarity Turbid H Clear Urine pH 6.5 5.0-9.0 Urine Specific [place] 1.019 1.001-1.035 Urine Protein Negative Negative Urine Ketones Negative Negative Urine Blood 3+ H Negative /uL Urine Nitrite Negative Negative Urine Bilirubin Negative Negative Urine Urobilinogen Normal Negative mg/dL Urine Leukocyte Esterase 2+ Negative /uL Urine RBC 1 0 - 4 /hpf Urine Microscopic WBC 14 H 0-5 /HPF Urine Squamous Epithelial Cells Mod <5 /hpf Urine Bacteria None seen None Seen /hpf Urine Glucose Normal Normal mg/dL Urine Opiates Screen Neg NEGATIVE Urine Fentanyl Screen Neg NEGATIVE Urine Barbiturates Screen Neg NEGATIVE Urine Phencyclidine Screen Neg NEGATIVE Urine Amphetamines Screen Neg NEGATIVE Urine Benzodiazepines Screen Neg NEGATIVE Urine Cocaine Screen Neg NEGATIVE Urine Cannabinoids Screen Neg NEGATIVE Assessment Assessment A: 24yo IUP@40.4wks Induction of labor for Post Dates Category 2 EFM SROM- Heavy meconium GBS negative Plan Plan P: Continue pitocin titration per order Pain mgmt - epidural monitoring per order Frequent position changes in bed encouraged Limit SVE unless necessary Intrauterine resuscitation PRN Anticipate CNM will consult with Dr. Escalona PRN Plan discussed with: Patient Visit Coding OBGYN Date of Service: Dec 28, 2024 Billing Provider: ALYSIA ADAMS CNM MARBLE MACHINE TENDER Common Visit Codes: [id number] INP/OBS CARE(MOD) RADHA WESTMDW Dec 28, 2024 01:08
[2024-12-28] MEDS: ROPIVACAINE HCL 100 ML ONE (03:51)
[2024-12-28] MEDS: ceFAZolin 2 GM/D5W50ml 50 ML IV ONE (08:09)
[2024-12-28] MEDS ORDERED: ACETAMINOPHEN 325 MG TAB PO PRN (08:15)
--- NOTE | 2024-12-28 08:22 | LDN2 ---
Labor and Delivery Note Date 12/28/24 Age 24 1 Para 1 now AB 0 EDC 12/24/24 EGA 40.4 Diagnosis Induction for post dates, then Vaginal Delivery: VTX Vacuum Assisted: No Placenta: Spontaneous Sex: Female Weight 3385g (7lb7oz) Apgars 8/9 Nuchal Cord Transected: No Amniotic Fluid: Meconium Stained, Thick Anesthesia Epidural Episiotomy: No Extension: No Repaired with 3-0 Vicryl EBL 300ml Labs Laboratory Tests 12/27/24 10:50: Hepatitis B Surface Antigen Negative, Rubella Antibody Positive 07/29/24 09:03: HIV (1&2) Antibody Negative Blood Bank 12/27/24 10:50: Blood Type AB POSITIVE Complications None 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 GLYNN with loose Nuchal x1 with cord reduced after . Infant placed skin to skin on pts chest. Cord clamped and cut after 1 minute. Cord blood sent. Pitocin IV bolus started. Intact 3-vessel cord placenta delivered spontaneously, Abdulkadir. Manual sweep performed and retained membrane removed. Placenta sent to pathology. Patient had epidural. Cervix/vagina/labia inspected (intact) and second degree perineal laceration present which was repaired with 3-0 Vicryl suture. Rectal mucosa and sphincter intact. Rectal exam performed, WNL, not involved. Fundus at U, firm, midline, and light lochia. QBL 300ml. VSS. Count correct x2. Patient to care and baby to couplet care, both stable. Ancef 2g IVPB once ordered to be given within an hour. Visit Coding OBGYN Date of Service: Dec 28, 2024 Billing Provider: ALYSIA ADAMS CNM BEAM DOFFER Common Visit Codes: PROCEDURE ONLY BEAM DOFFER Procedure Codes: [id number] DEL INCLUDING RADHA WEST STUDENTMDW Dec 28, 2024 08:22
[2024-12-28] MEDS: LACT. RINGERS/OXYTOCIN 20UNITS 500 ML IV ONE ×2 (08:34→08:35)
[2024-12-28] MEDS: PRENATAL VITAMIN TAB PO SCH (10:00)
[2024-12-28] MEDS: DOCUSATE SOD 100 MG CAP PO SCH (10:00)
[2024-12-28 10:51] VITALS: BP 132/77; PULSE 95; RESP 18; TEMP 97.8; O2SAT 96
[2024-12-28 14:44] VITALS: BP 136/78; PULSE 97; RESP 17; TEMP 98.6; O2SAT 98
[2024-12-28 18:30] VITALS: BP 140/78; PULSE 100; RESP 18; TEMP 98.6; O2SAT 100
[2024-12-28] MEDS: IBUPROFEN 600 MG TAB PO PRN (18:38)
[2024-12-28] MEDS ORDERED: IBU600T PO (20:40)
[2024-12-28] MEDS ORDERED: DOCU-265 PO (20:40)
[2024-12-28] MEDS ORDERED: PREN-96 PO (20:40)
[2024-12-28 23:00] VITALS: BP 133/86; PULSE 76; RESP 18; TEMP 97.9; O2SAT 99
--- NOTE | 2024-12-29 00:10 | DVHPN2 ---
Progress Note Date Seen: Dec 29, 2024 Subjective S: bleeding is less, eating food without issues, denies lightheaded/dizziness, pain well controlled with oral medications, no concerns with urinating, passing flatus, no BM yet, ambulating well, pumping breast milk vital signs Vital Sign Date Time Temp Pulse Resp B/P (MAP) Pulse Ox O2 Delivery O2 Flow Rate FiO2 12/28/24 23:00 97.9 76 18 133/86 (102) 99 97.9 12/28/24 18:30 Room Air Total Intake and Output 12/28/24 12/28/24 12/29/24 15:00 23:00 07:00 Output Total 2050 ml 100 ml Balance -2050 ml -100 ml medications Current Medications Medications Dose Ordered Sig/Marley Route Start Time Stop Time Status Last Admin Dose Admin Germania Kalina 1 pad PRN PRN TOP 12/27/24 10:45 12/27/24 12:10 1 PAD Sodium Lauryl Sulfate 240 ml PRN PRN TOP 12/27/24 10:45 12/27/24 12:10 240 ML Benzocaine 1 applic PRN PRN TOP 12/27/24 10:45 12/28/24 04:35 1 APPLIC Ondansetron HCl 4 mg Q4HPRN PRN IV 12/27/24 20:15 12/28/24 03:03 4 MG Ibuprofen 600 mg Q6HP PRN PO 12/28/24 08:15 12/28/24 18:38 600 MG Acetaminophen 650 mg Q6HPRN PRN PO 12/28/24 08:15 Prenat Multivit/ [place]/Iron/Folic Ac 1 DAILY PO 12/28/24 10:00 Docusate Sodium 200 mg DAILY PO 12/28/24 10:00 laboratory and microbiology Laboratory Tests 12/27/24 10:50 Test 12/27/24 10:50 Range/Units Serum Glucose 91 74-106 mg/dL Objective O: VSS Chest: heart sounds normal and lung sounds clear bilaterally Abd: soft, non-tender, fundus at U/firm/midline, active bowel sounds, no rebound or guarding Perineum: sutures intact, edges well approximated, no erythema/edema noted Ext: Non-tender, No edema, 2+ BLE DTRs Lochia: minimal See lab results Problems(with codes): (1) (normal spontaneous vaginal delivery) (2) Second degree perineal laceration during delivery Assessment/Plan A: 24yo now PPD#1 s/p Second degree perineal laceration, repaired Rh+ Rubella Immune P: D/C home today Rx sent to pharmacy precautions and preeclampsia warning signs reviewed F/U with [facility] office in 2 weeks Plan discussed with: Patient Visit Coding OBGYN Date of Service: Dec 29, 2024 Billing Provider: ALYSIA ADAMS CNM FIREPOT OPERATOR AND TENDER Common Visit Codes: [id number] INP/OBS CARE(MOD) ALYSIA ADAMS CNM Dec 29, 2024 00:10
--- NOTE | 2024-12-29 00:11 | DVHDS2 ---
Obstetrics Discharge Summary Obstetrics Discharge Summary Date of Admission: Dec 27, 2024 Date of Discharge: Dec 29, 2024 Reason For Admission: Induction of Labor Procedures: NST Intrapartum Procedures: Spontaneous vaginal deliv Procedures: Hct/date: (12/29/24), Hgb/date: (12/29/24) Operative Complicat: Laceration (second degree Perineal) Discharge Diagnosis: Term -Delivered Discharge Information: Activity (as tolerated, no heavy lifting and nothing in the vagina for 6 weeks), Diet (Routine), Medications (Rx sent), Instructions (Routine), Discharge to (Home), Accompanied by (partner), Discarge date (12/29/24) Visit Coding OBGYN Date of Service: Dec 29, 2024 Billing Provider: ALYSIA ADAMS CNM MASTER SHEET CLERK Common Visit Codes: [id number] DISCH DAY <30MIN ALYSIA ADAMS CNM Dec 29, 2024 00:11
[2024-12-29 02:54] VITALS: BP 101/59; PULSE 79; RESP 16; TEMP 97.9; O2SAT 100
[2024-12-29 07:15] VITALS: BP 118/78; PULSE 70; RESP 16; TEMP 97.9; O2SAT 99
[2024-12-29 07:38] LABS: Hematocrit 29.8 % (36.0-46.0); Hemoglobin 9.7 g/dL (12.2-16.2); Mean Corpuscular Hemoglobin 26.0 pg (28.0-32.0); Mean Corpuscular Volume 79.5 fL (80.0-100.0); Nucleated Red Blood Cells % 0.0 %
[2024-12-29] MEDS ORDERED: FER325T PO (10:51)
== END 2024-12-29 08:35 | disposition home or self-care (01) | DRG 807 ==
LOC: LDRP 10:00
PROVIDERS: ADMIT Obstetrics & Gynecology; ATTEND Obstetrics & Gynecology
PROC: 0KQM0ZZ Repair Perineum Muscle, Open Approach (ICD-10-PCS; principal; 2024-12-28)
PROC: 10E0XZZ Delivery of Products of Conception, External Approach (ICD-10-PCS; 2024-12-28)
PROC: 3E0R3BZ Introduction of Anesthetic Agent into Spinal Canal, Percutaneous Approach (ICD-10-PCS; 2024-12-28)
PROC: 00HU33Z Insertion of Infusion Device into Spinal Canal, Percutaneous Approach (ICD-10-PCS; 2024-12-28)
DX: O48.0 Post-term pregnancy (principal); Z37.0 Single live birth; O77.0 Labor and delivery complicated by meconium in amniotic fluid; Z3A.40 40 weeks gestation of pregnancy; O70.1 Second degree perineal laceration during delivery; O69.81X0 Labor and delivery complicated by cord around neck, without compression, not applicable or unspecified
CPT/HCPCS: 36415; 59025; 59200; 59409; 62282; 80053; 80307; 81001; 81002; 85025; 85610; 85730; 86762; 86780; 86803; 86850; 86900; 86901; 87340; 94760; 96360; 96361; 96365; 96366; 96374; A4344; G0378; J2405; J2590; J7060